=== PATIENT | male | born 1980 | race Caucasian/White ===

== ENCOUNTER 2021-02-06 12:56 | Inpatient (IN) ==
[2021-02-06] MEDS ORDERED: DEXTROSE 50% 25 GM/50 ML VIAL IV PRN (12:59)
[2021-02-06] MEDS ORDERED: GLUCAGON 1 MG VIAL IM PRN (12:59)
[2021-02-06] MEDS ORDERED: CLORAZEPATE 3.75 MG TABLET PO PRN (13:02)
[2021-02-06] MEDS ORDERED: MORPHINE 4 MG/1 ML VIAL IV PRN (13:21)
[2021-02-06] MEDS ORDERED: NITROGLYCERIN SL 0.4 MG TABLET SL PRN (13:21)
[2021-02-06 13:39] VITALS: BP 129/77
[2021-02-06 13:39] LABS: ABG Base Excess -0.4 MMOL/L (-2.5-2.5); ABG HCO3 24.1 MMOL/L (20-26); ABG Oxygen Saturation 97.7 % (95-100); ABG PCO2 37.2 MM HG (35-48); ABG PH 7.413 (7.35-7.45); ABG PO2 89.1 MM HG (80-95); ABG TCO2 19.7 MMOL/L (23-27)
[2021-02-06] MEDS ORDERED: SODIUM CHLORIDE 0.9% 1,000 ML IV SCH (14:00)
[2021-02-06 14:11] LABS: Basophils # 0.1 10*3/uL (0.0-0.2); Basophils % 0.6 % (0.0-0.8); Eosinophils # 0.2 10*3/uL (0.0-0.87); Eosinophils % 1.3 % (0.00-10.9); Hematocrit 46.4 VOL% (42.0-52.0); Hemoglobin 16.2 GM/DL (14.0-18.0); Immature Granulocytes % 0.9 %; Immature Granulocytes Absolute 0.13 #; Lymphocytes # 3.7 10*3/uL (1.4-4.0); Lymphocytes % 26.1 % (21.2-54.2); Mean Corpuscular HGB Conc 34.9 GM/DL (32-36); Mean Corpuscular Volume 86.9 FL (87-102); Mean Platelet Volume 9.3 FL (9.6-12.0); Monocytes % 5.3 % (1.7-12.7); Neutrophils % 65.8 % (38.7-73.9); Platelet Count 303 T/CUMM (130-400); Red Blood Count 5.34 MC/CUMM (3.8-5.5); Red Cell Distribution Width 12.8 % (9.3-17.3); White Blood Count 14.1 T/CUMM (4-12)
[2021-02-06 14:40] LABS: Albumin 3.5 G/DL (3.4-5.0); Bilirubin,Total 0.5 MG/DL (0.2-1.0); Calcium 8.7 MG/DL (8.5-10.1); Osmolality,Calculated 276.4 MOS/KG (273-304); Total Protein 7.2 G/DL (6.4-8.2); Troponin I 0.028 NG/ML (0.00-0.045)
[2021-02-06] MEDS ORDERED: CHLORHEXIDINE 0.12% ORAL RINSE 60 ML BOTTLE SWISH/SPIT SCH (15:00)
[2021-02-06] MEDS ORDERED: CHLORHEXIDINE 4% SOLN 118 ML BOTTLE TOP SCH (15:00)
[2021-02-06] MEDS ORDERED: carvediloL 3.125 MG TABLET PO SCH (21:00)
[2021-02-07] MEDS ORDERED: CEFUROXIME INJ 1,500 MG in SODIUM CHLORIDE 0.9% 100 ML IV ONE (05:00)
[2021-02-07] MEDS ORDERED: FAMOTIDINE 20 MG TABLET PO ONE (05:00)
[2021-02-07] MEDS ORDERED: DIAZEPAM 5 MG TABLET PO ONE (05:00)
== END 2021-02-06 16:00 | disposition left against medical advice (07) | DRG 282 ==
LOC: N.5E 12:56

== ENCOUNTER 2021-03-25 09:00 | Inpatient (IN) ==
[2021-03-25] MEDS ORDERED: GLUCAGON 1 MG VIAL IM PRN ×2 (09:24→13:26)
[2021-03-25] MEDS ORDERED: DEXTROSE 50% 25 GM/50 ML VIAL IV PRN ×2 (09:24→13:26)
[2021-03-25 10:14] LABS: ABG Base Excess -3.2 MMOL/L (-2.5-2.5); ABG HCO3 21.8 MMOL/L (20-26); ABG Oxygen Saturation 98.1 % (95-100); ABG PCO2 31.1 MM HG (35-48); ABG PH 7.418 (7.35-7.45); ABG TCO2 16.7 MMOL/L (23-27)
[2021-03-25] MEDS ORDERED: NITROGLYCERIN SL 0.4 MG TABLET SL PRN (10:52)
[2021-03-25 11:02] LABS: Basophils # 0.1 10*3/uL (0.0-0.2); Basophils % 0.4 % (0.0-0.8); Eosinophils # 0.1 10*3/uL (0.0-0.87); Eosinophils % 1.2 % (0.00-10.9); Hematocrit 42.6 VOL% (42.0-52.0); Hemoglobin 15.5 GM/DL (14.0-18.0); Immature Granulocytes % 0.4 %; Immature Granulocytes Absolute 0.05 #; Lymphocytes # 3.6 10*3/uL (1.4-4.0); Lymphocytes % 31.1 % (21.2-54.2); Mean Corpuscular HGB Conc 36.4 GM/DL (32-36); Mean Corpuscular Volume 85.4 FL (87-102); Mean Platelet Volume 9.3 FL (9.6-12.0); Monocytes % 5.8 % (1.7-12.7); Neutrophils % 61.1 % (38.7-73.9); Platelet Count 239 T/CUMM (130-400); Red Blood Count 4.99 MC/CUMM (3.8-5.5); Red Cell Distribution Width 12.5 % (9.3-17.3); White Blood Count 11.6 T/CUMM (4-12)
[2021-03-25 11:29] LABS: Albumin 3.4 G/DL (3.4-5.0); Bilirubin,Total 0.5 MG/DL (0.2-1.0); Calcium 8.5 MG/DL (8.5-10.1); Osmolality,Calculated 277.5 MOS/KG (273-304); Total Protein 7.2 G/DL (6.4-8.2)
[2021-03-25] MEDS: CHLORHEXIDINE 0.12% ORAL RINSE 60 ML BOTTLE SWISH/SPIT SCH ×2 (11:55→21:46)
[2021-03-25] MEDS ORDERED: PANTOPRAZOLE 40 MG TABLET PO ONE (13:37)
[2021-03-25] MEDS ORDERED: DIAZEPAM 5 MG TABLET PO ONE (13:37)
[2021-03-25] MEDS: SODIUM CHLORIDE 0.9% 1,000 ML IV SCH (13:45)
[2021-03-25] MEDS: CHLORHEXIDINE 4% SOLN 118 ML BOTTLE TOP SCH ×2 (14:38→21:46)
[2021-03-25] MEDS ORDERED: CLORAZEPATE 3.75 MG TABLET PO PRN (14:41)
[2021-03-25] MEDS ORDERED: NICOTINE 21 MG/24 HR PATCH TRANSDERM PRN (14:41)
[2021-03-25] MEDS: INSULIN REGULAR 100 UNIT/ML SUBCUT SCH ×2 (16:08→21:46)
[2021-03-25] MEDS: carvediloL 3.125 MG TABLET PO SCH (21:46)
[2021-03-26] MEDS ORDERED: PAPAVERINE 60 MG/2 ML VIAL ONE (04:25)
[2021-03-26] MEDS ORDERED: VANCOMYCIN 500 MG VIAL ONE (04:25)
[2021-03-26] MEDS ORDERED: VANCOMYCIN 1,000 MG VIAL ONE (04:25)
[2021-03-26] MEDS ORDERED: CEFUROXIME INJ 1,500 MG in SODIUM CHLORIDE 0.9% 100 ML IV ONE (05:00)
[2021-03-26] MEDS ORDERED: SUFentanil 50 MCG/ML AMP ONE (05:49)
[2021-03-26] MEDS ORDERED: MIDAZOLAM 10 MG/2 ML VIAL ONE (05:49)
[2021-03-26] MEDS ORDERED: SUFentanil 250 MCG/5 ML AMP ONE (05:49)
[2021-03-26] MEDS ORDERED: PANTOPRAZOLE 40 MG TABLET PO ONE (06:00)
[2021-03-26] MEDS ORDERED: DIAZEPAM 5 MG TABLET PO ONE (06:00)
[2021-03-26] MEDS ORDERED: VECURONIUM 10 MG VIAL IV ONE ×3 (06:02→06:17)
[2021-03-26] MEDS ORDERED: CALCIUM CHLORIDE 1,000 MG/10 ML VIAL IV ONE ×2 (06:02→11:34)
[2021-03-26] MEDS ORDERED: ETOMIDATE 40 MG/20 ML VIAL IV ONE (06:02)
[2021-03-26] MEDS ORDERED: AMINOCAPROIC ACID 5,000 MG/20 ML VIAL ONE (06:02)
[2021-03-26] MEDS ORDERED: LIDOCAINE 2% 5 ML VIAL ONE ×2 (06:02→11:53)
[2021-03-26 07:38] LABS: ABG Base Excess -1.2 MMOL/L (-2.5-2.5); ABG HCO3 23.4 MMOL/L (20-26); ABG Oxygen Saturation 98.9 % (95-100); ABG PCO2 39.2 MM HG (35-48); ABG PH 7.394 (7.35-7.45); ABG PO2 363.8 MM HG (80-95); ABG TCO2 24.6 MMOL/L (23-27); Glucose Heart Surgery 273 MG/DL (74-106); Ionized Calcium Arterial 1.09 MMOL/L (1.21-1.46); PCO2 Patient Temp Arterial 39.2 MMHG; PH Patient Temp Arterial 7.394; PO2 Patient Temp Arterial 363.8 MM HG; Patient Temperature 37 CELCIUS; Sodium Heart/CVR 132 MMOL/L (135-145)
[2021-03-26] MEDS ORDERED: POTASSIUM CHLORIDE RIDER 20 MEQ/100 ML PREMIX IV ONE (07:43)
[2021-03-26] MEDS ORDERED: SODIUM BICARBONATE 50 MEQ/50 ML VIAL IV ONE ×2 (07:43→11:55)
[2021-03-26] MEDS ORDERED: NITROPRUSSIDE 50 MG/2 ML VIAL ONE (07:43)
[2021-03-26] MEDS ORDERED: PHENYLEPHRINE DRIP 40 MG/250 ML PREMIX IV ONE (07:44)
[2021-03-26] MEDS ORDERED: CALCIUM CHLORIDE 1,000 MG/10 ML SYRINGE IV ONE (07:44)
[2021-03-26] MEDS ORDERED: ALBUMIN 5% 25.0 GM/500 ML VIAL IV ONE (07:44)
[2021-03-26 07:56] LABS: Bilirubin,Urine Negative (Negative); Blood, Urine Negative (Negative); Glucose,Urine (UA) >=500 mg/dL (Negative); Ketones,Urine Negative (Negative); Nitrite,Urine Negative (Negative); Protein,Urine Negative; RBC,Urine 1 /HPF (0-4); Squamous Epithelial Cell,Urine Occasional /HPF (0-10); Urine Appearance CLEAR (Clear); Urine Color Yellow (Yellow); Urine Specific Gravity 1.017 (1.001-1.035); Urine Urobilinogen < 2.0 EU/DL (0.2-1.0)
[2021-03-26 09:37] LABS: Hemoglobin Heart Surgery 10.3 G/DL (14.0-18.0); PCO2 Patient Temp Venous 37.5 MM HG; PH Patient Temp Venous 7.416; PO2 Patient Temp Venous 35.2 MM HG; VBG HCO3 24.3 MEQ/L (24-28); VBG Oxygen Saturation 78.7 %; VBG PCO2 42.8 MMHG (41-51); VBG PH 7.372; VBG PO2 43.5 MMHG (17-40); VBG Total CO2 25.6 MMOL/L
[2021-03-26 09:38] LABS: Potassium Heart/CVR 6.6 MMOL/L (3.5-5.1)
[2021-03-26 10:15] LABS: Hemoglobin Heart Surgery 12.3 G/DL (14.0-18.0); PCO2 Patient Temp Venous 39.3 MM HG; PH Patient Temp Venous 7.376; PO2 Patient Temp Venous 43.4 MM HG; VBG Base Excess -2.4 MEQ/L (0-4); VBG HCO3 22.5 MEQ/L (24-28); VBG Oxygen Saturation 78.3 %; VBG PCO2 39.3 MMHG (41-51); VBG PH 7.376; VBG PO2 43.4 MMHG (17-40); VBG Total CO2 23.7 MMOL/L
[2021-03-26 10:16] LABS: Potassium Heart/CVR 6.1 MMOL/L (3.5-5.1)
[2021-03-26] MEDS ORDERED: PHENYLEPHRINE DRIP 20 MG/250 ML PREMIX IV ONE (10:52)
[2021-03-26] MEDS ORDERED: HEPARIN/NACL 0.9% 2 UNITS/ML 1,000 UNIT/500 ML BAG IV ONE (10:52)
[2021-03-26] MEDS ORDERED: SODIUM CHLORIDE 0.9% 250 ML IV ONE (10:52)
[2021-03-26] MEDS ORDERED: SODIUM CHLORIDE 0.9% 1,000 ML IV ONE ×2 (10:52→12:08)
[2021-03-26] MEDS ORDERED: LACTATED RINGERS 1,000 ML IV ONE (10:52)
[2021-03-26] MEDS ORDERED: NITROGLYCERIN DRIP 50 MG/250 ML BOTTLE IV ONE (10:52)
[2021-03-26] MEDS ORDERED: SEVOFLURANE 1 UNIT/15 MINUTE INH ONE ×2 (10:53→11:44)
[2021-03-26 10:54] LABS: Hematocrit Heart Surgery 40.3 PERCENT (42-52); Hemoglobin Heart Surgery 13.1 G/DL (14.0-18.0); PCO2 Patient Temp Venous 40.1 MM HG; PH Patient Temp Venous 7.366; PO2 Patient Temp Venous 35.2 MM HG; Potassium Heart/CVR 5.5 MMOL/L (3.5-5.1); VBG Base Excess -2.2 MEQ/L (0-4); VBG Oxygen Saturation 67.9 %; VBG PCO2 40.1 MMHG (41-51); VBG PH 7.366; VBG PO2 35.2 MMHG (17-40); VBG Total CO2 20.3 MMOL/L
[2021-03-26] MEDS ORDERED: NEOMYCIN/POLYMYXIN IRRIG SOLN 1 ML AMP BLADDERIRR ONE (11:03)
[2021-03-26] MEDS ORDERED: ALBUTEROL INHALER 18 GM INH ONE (11:17)
[2021-03-26 11:45] LABS: ABG Base Excess -6.1 MMOL/L (-2.5-2.5); ABG HCO3 19.5 MMOL/L (20-26); ABG Oxygen Saturation 98.5 % (95-100); ABG PCO2 49.4 MM HG (35-48); ABG PH 7.249 (7.35-7.45); ABG TCO2 19.4 MMOL/L (23-27); Glucose Heart Surgery 407 MG/DL (74-106); Hematocrit Heart Surgery 39.4 PERCENT (42-52); Hemoglobin Heart Surgery 12.8 G/DL (14.0-18.0); Ionized Calcium Arterial 1.41 MMOL/L (1.21-1.46); PCO2 Patient Temp Arterial 49.4 MMHG; PH Patient Temp Arterial 7.249; Patient Temperature 37 CELCIUS; Potassium Heart/CVR 3.6 MMOL/L (3.5-5.1); Sodium Heart/CVR 132 MMOL/L (135-145)
[2021-03-26] MEDS ORDERED: MAGNESIUM SULFATE 5 GM/10 ML VIAL IV ONE (11:53)
[2021-03-26] MEDS ORDERED: ALBUMIN 25% 25 GM/100 ML VIAL IV ONE (11:53)
[2021-03-26] MEDS ORDERED: methylPREDNISolone SOD SUC 1,000 MG/8 ML VIAL ONE (11:54)
[2021-03-26] MEDS ORDERED: PROTAMINE SULFATE 250 MG/25 ML VIAL IV ONE (11:54)
[2021-03-26] MEDS ORDERED: MANNITOL 100 GM/500 ML BAG IV ONE (11:54)
[2021-03-26] MEDS ORDERED: HEPARIN 10,000 UNIT/10 ML VIAL ONE (11:54)
[2021-03-26] MEDS ORDERED: FUROSEMIDE 20 MG/2 ML VIAL ONE (11:54)
[2021-03-26] MEDS ORDERED: DEXTROSE 5% KCL 20 MEQ 20 MEQ/1,000 ML BAG IV ONE (11:54)
[2021-03-26] MEDS ORDERED: PROTAMINE SULFATE 50 MG/5 ML VIAL IV ONE (11:54)
[2021-03-26] MEDS: PHENYLEPHRINE DRIP 40 MG/250 ML PREMIX IV PRN ×2 (12:35→20:44)
[2021-03-26] MEDS ORDERED: MAGNESIUM SULF RIDER 4 GM/100 ML PREMIX IV PRN (12:56)
[2021-03-26] MEDS ORDERED: CHLORHEXIDINE 4% SOLN 118 ML BOTTLE TOP PRN (12:56)
[2021-03-26] MEDS ORDERED: INSULIN REGULAR 100 UNIT/ML IV ONE ×2 (12:56→16:07)
[2021-03-26] MEDS ORDERED: MORPHINE 10 MG/1 ML VIAL IV PRN (12:56)
[2021-03-26] MEDS ORDERED: MAGNESIUM SULF RIDER 2 GM/50 ML PREMIX IV PRN (12:56)
[2021-03-26] MEDS ORDERED: LACTATED RINGERS 250 ML IV PRN (12:56)
[2021-03-26] MEDS ORDERED: MIDAZOLAM 2 MG/2 ML VIAL IV PRN (12:56)
[2021-03-26] MEDS ORDERED: INSULIN REGULAR 100 UNIT/ML IV PRN (12:56)
[2021-03-26] MEDS ORDERED: SODIUM CHLORIDE 0.45% 1,000 ML IV SCH (12:56)
[2021-03-26] MEDS ORDERED: NITROPRUSSIDE 100 MG in DEXTROSE 5% 250 ML IV PRN (12:56)
[2021-03-26] MEDS ORDERED: ONDANSETRON 4 MG/2 ML VIAL IV PRN (12:56)
[2021-03-26] MEDS ORDERED: POTASSIUM CHLORIDE RIDER 10 MEQ/100 ML PREMIX IV PRN (12:56)
[2021-03-26] MEDS ORDERED: VECURONIUM 10 MG VIAL IV PRN ×2 (12:56)
[2021-03-26] MEDS ORDERED: ACETAMINOPHEN 650 MG SUPP RECTAL PRN (12:56)
[2021-03-26] MEDS ORDERED: CALCIUM CHLORIDE 1,000 MG/10 ML SYRINGE IV PRN (12:56)
[2021-03-26] MEDS ORDERED: DEXTROSE 50% 25 GM/50 ML VIAL IV PRN ×2 (12:56)
[2021-03-26] MEDS ORDERED: MIDAZOLAM 10 MG/2 ML VIAL IV PRN (12:56)
[2021-03-26 13:04] LABS: ABG Base Excess -4.7 MMOL/L (-2.5-2.5); ABG HCO3 20.6 MMOL/L (20-26); ABG Oxygen Saturation 99.1 % (95-100); ABG PCO2 45.7 MM HG (35-48); ABG PH 7.292 (7.35-7.45); ABG TCO2 19.5 MMOL/L (23-27); Glucose Heart Surgery 357 MG/DL (74-106); Hematocrit Heart Surgery 41.3 PERCENT (42-52); Hemoglobin Heart Surgery 13.5 G/DL (14.0-18.0); Potassium Heart/CVR 3.3 MMOL/L (3.5-5.1)
[2021-03-26 13:05] LABS: Basophils # 0.1 10*3/uL (0.0-0.2); Basophils % 0.4 % (0.0-0.8); Eosinophils # 0.1 10*3/uL (0.0-0.87); Eosinophils % 0.3 % (0.00-10.9); Hematocrit 37.4 VOL% (42.0-52.0); Hemoglobin 13.4 GM/DL (14.0-18.0); Immature Granulocytes % 1.3 %; Lymphocytes # 3.3 10*3/uL (1.4-4.0); Lymphocytes % 14.2 % (21.2-54.2); Mean Corpuscular HGB Conc 35.8 GM/DL (32-36); Mean Corpuscular Volume 87.4 FL (87-102); Mean Platelet Volume 9.4 FL (9.6-12.0); Monocytes % 5.4 % (1.7-12.7); Neutrophils % 78.4 % (38.7-73.9); Platelet Count 231 T/CUMM (130-400); Red Blood Count 4.28 MC/CUMM (3.8-5.5); Red Cell Distribution Width 12.6 % (9.3-17.3)
[2021-03-26 13:06] LABS: White Blood Count 23.5 T/CUMM (4-12)
[2021-03-26 13:17] LABS: INR 1.1; Partial Thromboplastin Time 26.2 SECS (23.9-33.8)
[2021-03-26 13:19] LABS: Albumin 2.8 G/DL (3.4-5.0); Bilirubin,Total 1.1 MG/DL (0.2-1.0); Calcium 8.2 MG/DL (8.5-10.1); Osmolality,Calculated 288.5 MOS/KG (273-304); Potassium 3.4 MMOL/L (3.5-5.1); Total Protein 5.2 G/DL (6.4-8.2)
[2021-03-26 13:23] LABS: CKMB % 6.1 %
[2021-03-26 13:25] LABS: High Sensitive Troponin I* 2715.4 ng/L (0-78)
[2021-03-26] MEDS: POTASSIUM CHLORIDE RIDER 20 MEQ/100 ML PREMIX IV PRN ×4 (13:30→23:54)
[2021-03-26 13:48] LABS: Lymphocytes 12 % (20-55); Platelet Estimate Adequate; Segmented Neutrophils 87 % (50-85); Total Cells Counted 100
[2021-03-26] MEDS: ALBUMIN 5% 12.5 GM/250 ML VIAL IV PRN ×2 (14:24→20:38)
[2021-03-26] MEDS: INSULIN REGULAR 100 UNIT/ML SUBCUT SCH ×2 (14:35→14:36)
[2021-03-26] MEDS: CHLORHEXIDINE 4% SOLN 118 ML BOTTLE TOP SCH (14:36)
[2021-03-26] MEDS: CHLORHEXIDINE 0.12% ORAL RINSE 60 ML BOTTLE SWISH/SPIT SCH ×2 (14:36→20:48)
[2021-03-26] MEDS: carvediloL 3.125 MG TABLET PO SCH (14:36)
[2021-03-26] MEDS: SODIUM CHLORIDE 0.9% 1,000 ML IV SCH (14:37)
[2021-03-26 14:42] LABS: ABG Base Excess -3.1 MMOL/L (-2.5-2.5); ABG HCO3 21.8 MMOL/L (20-26); ABG Oxygen Saturation 97.7 % (95-100); ABG PH 7.322 (7.35-7.45); Glucose Heart Surgery 379 MG/DL (74-106); Hematocrit Heart Surgery 46.5 PERCENT (42-52); Hemoglobin Heart Surgery 15.2 G/DL (14.0-18.0); Potassium Heart/CVR 4.6 MMOL/L (3.5-5.1)
[2021-03-26] MEDS: INSULIN REGULAR DRIP 100 ML IV SCH ×2 (15:05→20:42)
[2021-03-26] MEDS ORDERED: ACETAMINOPHEN 325 MG/10.15 ML UDCUP PO PRN (15:51)
[2021-03-26] MEDS ORDERED: ACETAMINOPHEN 325 MG/10.15 ML UDCUP ONE (15:53)
[2021-03-26] MEDS: KETOROLAC 30 MG/1 ML VIAL IV SCH ×2 (17:32→23:41)
[2021-03-26] MEDS ORDERED: FUROSEMIDE 40 MG/4 ML VIAL IV ONE (20:06)
[2021-03-26 20:07] LABS: ABG Base Excess -4.5 MMOL/L (-2.5-2.5); ABG HCO3 20.9 MMOL/L (20-26); ABG Oxygen Saturation 96.9 % (95-100); ABG PCO2 39.8 MM HG (35-48); ABG PH 7.339 (7.35-7.45); ABG PO2 97.5 MM HG (80-95); ABG TCO2 22.2 MMOL/L (23-27); Glucose Heart Surgery 198 MG/DL (74-106); Hemoglobin Heart Surgery 14.6 G/DL (14.0-18.0); Potassium Heart/CVR 3.6 MMOL/L (3.5-5.1)
[2021-03-26] MEDS: CEFUROXIME INJ 1,500 MG in SODIUM CHLORIDE 0.9% 100 ML IV SCH (20:35)
[2021-03-26 20:56] LABS: High Sensitive Troponin I* 29268.6 ng/L (0-78)
[2021-03-26] MEDS: MORPHINE 4 MG/1 ML VIAL IV PRN (23:48)
[2021-03-26 23:49] LABS: ABG HCO3 22.7 MMOL/L (20-26); ABG Oxygen Saturation 96.6 % (95-100); ABG PCO2 39.3 MM HG (35-48); ABG PH 7.375 (7.35-7.45); ABG PO2 84.6 MM HG (80-95); Glucose Heart Surgery 161 MG/DL (74-106); Hematocrit Heart Surgery 41.1 PERCENT (42-52); Hemoglobin Heart Surgery 13.4 G/DL (14.0-18.0); Potassium Heart/CVR 3.3 MMOL/L (3.5-5.1)
[2021-03-27] MEDS: POTASSIUM CHLORIDE RIDER 20 MEQ/100 ML PREMIX IV PRN (00:30)
[2021-03-27] MEDS: INSULIN REGULAR DRIP 100 ML IV SCH (01:51)
[2021-03-27 04:03] LABS: ABG Base Excess -2.6 MMOL/L (-2.5-2.5); ABG HCO3 22.2 MMOL/L (20-26); ABG Oxygen Saturation 94.9 % (95-100); ABG PH 7.375 (7.35-7.45); ABG PO2 71.7 MM HG (80-95); ABG TCO2 19.4 MMOL/L (23-27); Glucose Heart Surgery 116 MG/DL (74-106); Hematocrit Heart Surgery 40.9 PERCENT (42-52); Hemoglobin Heart Surgery 13.3 G/DL (14.0-18.0); Potassium Heart/CVR 3.8 MMOL/L (3.5-5.1)
[2021-03-27 04:11] LABS: Basophils # 0.1 10*3/uL (0.0-0.2); Basophils % 0.2 % (0.0-0.8); Eosinophils % 0.1 % (0.00-10.9); Hematocrit 37.2 VOL% (42.0-52.0); Hemoglobin 12.9 GM/DL (14.0-18.0); Lymphocytes # 2.4 10*3/uL (1.4-4.0); Mean Corpuscular HGB Conc 34.7 GM/DL (32-36); Mean Corpuscular Volume 87.1 FL (87-102); Mean Platelet Volume 9.2 FL (9.6-12.0); Monocytes % 5.5 % (1.7-12.7); Neutrophils % 85.2 % (38.7-73.9); Platelet Count 253 T/CUMM (130-400); Red Blood Count 4.27 MC/CUMM (3.8-5.5); Red Cell Distribution Width 12.9 % (9.3-17.3); White Blood Count 30.6 T/CUMM (4-12)
[2021-03-27 04:39] LABS: Band Neutrophils 2 % (0-10); Lymphocytes 9 % (20-55); Segmented Neutrophils 88 % (50-85); Total Cells Counted 100
[2021-03-27 04:40] LABS: Albumin 3.3 G/DL (3.4-5.0); Bilirubin,Direct 0.2 MG/DL (0.0-0.20); Bilirubin,Total 0.6 MG/DL (0.2-1.0); Calcium 7.8 MG/DL (8.5-10.1); Hypochromasia Slight; Microcytosis 1+; Osmolality,Calculated 279.3 MOS/KG (273-304); Platelet Estimate Normal; Potassium 3.8 MMOL/L (3.5-5.1); Total Protein 5.6 G/DL (6.4-8.2)
[2021-03-27 04:52] LABS: CKMB % 7.7 %
[2021-03-27 04:54] LABS: High Sensitive Troponin I* 39035.6 ng/L (0-78)
[2021-03-27] MEDS: KETOROLAC 30 MG/1 ML VIAL IV SCH ×4 (05:51→21:39)
[2021-03-27] MEDS: MORPHINE 4 MG/1 ML VIAL IV PRN ×2 (05:52→07:48)
[2021-03-27] MEDS ORDERED: FUROSEMIDE 40 MG/4 ML VIAL IV ONE (07:03)
[2021-03-27] MEDS ORDERED: FUROSEMIDE 40 MG/4 ML VIAL ONE (07:05)
[2021-03-27] MEDS: CEFUROXIME INJ 1,500 MG in SODIUM CHLORIDE 0.9% 100 ML IV SCH ×2 (07:16→21:06)
[2021-03-27] MEDS: ASPIRIN EC 325 MG TABLET PO SCH (08:12)
[2021-03-27] MEDS: CHLORHEXIDINE 0.12% ORAL RINSE 60 ML BOTTLE SWISH/SPIT SCH ×2 (08:12→21:05)
[2021-03-27] MEDS ORDERED: INSULIN REGULAR 100 UNIT/ML SUBCUT SCH ×2 (08:30→10:00)
[2021-03-27] MEDS: oxyCODONE/ACETAMINOPHEN 5-325 MG TABLET PO PRN ×2 (08:37→19:47)
[2021-03-27] MEDS ORDERED: ZALEPLON 5 MG CAPSULE PO PRN (10:12)
[2021-03-27] MEDS ORDERED: MAGNESIUM HYDROXIDE SUSP 30 ML UDCUP PO PRN (10:12)
[2021-03-27] MEDS ORDERED: ONDANSETRON 4 MG/2 ML VIAL IV PRN (10:12)
[2021-03-27] MEDS ORDERED: DEXTROSE 50% 25 GM/50 ML VIAL IV PRN ×2 (10:12)
[2021-03-27] MEDS ORDERED: POTASSIUM CHLORIDE 20 MEQ TABLET PO PRN (10:12)
[2021-03-27] MEDS ORDERED: GLUCAGON 1 MG VIAL IM PRN ×2 (10:12)
[2021-03-27] MEDS ORDERED: MAGNESIUM SULF RIDER 2 GM/50 ML PREMIX IV PRN (10:12)
[2021-03-27] MEDS ORDERED: ACETAMINOPHEN 325 MG TABLET PO PRN (10:12)
[2021-03-27] MEDS ORDERED: SODIUM CHLOR 0.45% KCL 20 MEQ 20 MEQ/1,000 ML BAG IV SCH (10:12)
[2021-03-27] MEDS ORDERED: MAGNESIUM SULF RIDER 4 GM/100 ML PREMIX IV PRN (10:12)
[2021-03-27] MEDS ORDERED: ALUMINUM/MAGNES/SIMETH MAX STR 30 ML UDCUP PO PRN (10:12)
[2021-03-27] MEDS: carvediloL 3.125 MG TABLET PO SCH ×2 (10:46→21:07)
[2021-03-27] MEDS ORDERED: INSULIN GLARGINE 100 UNIT/ML SUBCUT SCH (14:29)
[2021-03-27 14:44] LABS: CKMB % 6.6 %
[2021-03-27 14:46] LABS: High Sensitive Troponin I* 20376.8 ng/L (0-78)
[2021-03-27] MEDS: INSULIN REGULAR 100 UNIT/ML SUBCUT SCH ×2 (15:06→21:06)
[2021-03-27] MEDS: HYDROmorphone 2 MG/1 ML VIAL IV PRN (21:40)
[2021-03-28] MEDS: INSULIN REGULAR 100 UNIT/ML SUBCUT SCH ×6 (00:07→21:33)
[2021-03-28] MEDS: KETOROLAC 30 MG/1 ML VIAL IV SCH ×4 (02:32→22:34)
[2021-03-28 05:00] LABS: Basophils % 0.2 % (0.0-0.8); Eosinophils % 0.1 % (0.00-10.9); Hematocrit 32.2 VOL% (42.0-52.0); Hemoglobin 11.1 GM/DL (14.0-18.0); Immature Granulocytes % 0.8 %; Immature Granulocytes Absolute 0.13 #; Lymphocytes # 3.1 10*3/uL (1.4-4.0); Lymphocytes % 18.3 % (21.2-54.2); Mean Corpuscular HGB Conc 34.5 GM/DL (32-36); Mean Platelet Volume 9.4 FL (9.6-12.0); Monocytes % 7.5 % (1.7-12.7); Neutrophils % 73.1 % (38.7-73.9); Platelet Count 171 T/CUMM (130-400); Red Blood Count 3.62 MC/CUMM (3.8-5.5); Red Cell Distribution Width 12.9 % (9.3-17.3); White Blood Count 16.9 T/CUMM (4-12)
[2021-03-28 05:27] LABS: Bilirubin,Direct 0.16 MG/DL (0.0-0.20); Bilirubin,Total 0.5 MG/DL (0.2-1.0); Calcium 8.2 MG/DL (8.5-10.1); Osmolality,Calculated 281.1 MOS/KG (273-304); Potassium 3.9 MMOL/L (3.5-5.1); Total Protein 5.9 G/DL (6.4-8.2)
[2021-03-28 05:28] LABS: Albumin 2.9 G/DL (3.4-5.0); Bilirubin,Direct 0.17 MG/DL (0.0-0.20); Bilirubin,Indirect 0.4 MG/DL (0.0-1.0); Bilirubin,Total 0.6 MG/DL (0.2-1.0); CKMB % 4.5 %; High Sensitive Troponin I* 11668.3 ng/L (0-78); Total Protein 5.9 G/DL (6.4-8.2)
[2021-03-28] MEDS ORDERED: FUROSEMIDE 40 MG/4 ML VIAL IV ONE (06:00)
[2021-03-28] MEDS: HYDROmorphone 2 MG/1 ML VIAL IV PRN ×4 (08:28→20:04)
[2021-03-28] MEDS: FERROUS SULFATE 325 MG TABLET PO SCH (08:40)
[2021-03-28] MEDS: PANTOPRAZOLE 40 MG TABLET PO SCH (08:40)
[2021-03-28] MEDS: carvediloL 3.125 MG TABLET PO SCH ×2 (08:40→21:31)
[2021-03-28] MEDS: ASPIRIN EC 325 MG TABLET PO SCH (08:40)
[2021-03-28] MEDS: DOCUSATE SODIUM 100 MG CAPSULE PO SCH (08:41)
[2021-03-28] MEDS: metFORMIN 500 MG TABLET PO SCH ×2 (08:41→17:34)
[2021-03-28] MEDS: CHLORHEXIDINE 0.12% ORAL RINSE 60 ML BOTTLE SWISH/SPIT SCH ×2 (08:41→21:34)
[2021-03-28] MEDS ORDERED: oxyCODONE/ACETAMINOPHEN 5-325 MG TABLET PO PRN (12:17)
[2021-03-29] MEDS: INSULIN REGULAR 100 UNIT/ML SUBCUT SCH ×6 (00:35→21:57)
[2021-03-29] MEDS: HYDROmorphone 2 MG/1 ML VIAL IV PRN ×3 (00:36→19:48)
[2021-03-29] MEDS: KETOROLAC 30 MG/1 ML VIAL IV SCH ×4 (04:53→21:56)
[2021-03-29 05:20] LABS: Basophils % 0.1 % (0.0-0.8); Eosinophils # 0.1 10*3/uL (0.0-0.87); Eosinophils % 0.4 % (0.00-10.9); Hematocrit 33.2 VOL% (42.0-52.0); Hemoglobin 11.6 GM/DL (14.0-18.0); Immature Granulocytes % 0.8 %; Immature Granulocytes Absolute 0.14 #; Lymphocytes # 4.7 10*3/uL (1.4-4.0); Lymphocytes % 27.3 % (21.2-54.2); Mean Corpuscular HGB Conc 34.9 GM/DL (32-36); Mean Corpuscular Volume 88.8 FL (87-102); Mean Platelet Volume 9.8 FL (9.6-12.0); Monocytes % 8.3 % (1.7-12.7); Neutrophils % 63.1 % (38.7-73.9); Platelet Count 208 T/CUMM (130-400); Red Blood Count 3.74 MC/CUMM (3.8-5.5); Red Cell Distribution Width 12.8 % (9.3-17.3); White Blood Count 17.1 T/CUMM (4-12)
[2021-03-29 05:42] LABS: Albumin 2.9 G/DL (3.4-5.0); Bilirubin,Direct 0.19 MG/DL (0.0-0.20); Bilirubin,Total 0.8 MG/DL (0.2-1.0); Calcium 8.3 MG/DL (8.5-10.1); Osmolality,Calculated 270.4 MOS/KG (273-304); Potassium 3.5 MMOL/L (3.5-5.1); Total Protein 6.3 G/DL (6.4-8.2)
[2021-03-29 05:43] LABS: Alanine Aminotransferase 40 U/L (16-61); Albumin 2.9 G/DL (3.4-5.0); Aspartate Amino Transferase 22 U/L (0-37); Bilirubin,Indirect 0.7 MG/DL (0.0-1.0); Total Protein 6.2 G/DL (6.4-8.2)
[2021-03-29 05:45] LABS: Alkaline Phosphatase 65 U/L (45-117)
[2021-03-29] MEDS ORDERED: FUROSEMIDE 40 MG/4 ML VIAL IV ONE (06:00)
[2021-03-29] MEDS: carvediloL 3.125 MG TABLET PO SCH ×2 (09:04→21:56)
[2021-03-29] MEDS: metFORMIN 500 MG TABLET PO SCH ×2 (09:04→17:07)
[2021-03-29] MEDS: ASPIRIN EC 325 MG TABLET PO SCH (09:04)
[2021-03-29] MEDS: DOCUSATE SODIUM 100 MG CAPSULE PO SCH (09:04)
[2021-03-29] MEDS: FERROUS SULFATE 325 MG TABLET PO SCH (09:04)
[2021-03-29] MEDS: PANTOPRAZOLE 40 MG TABLET PO SCH (09:05)
[2021-03-29] MEDS: CHLORHEXIDINE 0.12% ORAL RINSE 60 ML BOTTLE SWISH/SPIT SCH ×2 (09:05→21:57)
[2021-03-30] MEDS: HYDROmorphone 2 MG/1 ML VIAL IV PRN ×2 (00:16→05:51)
[2021-03-30] MEDS: INSULIN REGULAR 100 UNIT/ML SUBCUT SCH ×3 (00:17→09:19)
[2021-03-30] MEDS: KETOROLAC 30 MG/1 ML VIAL IV SCH ×2 (04:56→09:20)
[2021-03-30 05:36] LABS: Basophils % 0.3 % (0.0-0.8); Eosinophils # 0.2 10*3/uL (0.0-0.87); Eosinophils % 1.3 % (0.00-10.9); Hematocrit 29.6 VOL% (42.0-52.0); Hemoglobin 10.3 GM/DL (14.0-18.0); Immature Granulocytes % 0.7 %; Immature Granulocytes Absolute 0.08 #; Lymphocytes # 3.1 10*3/uL (1.4-4.0); Lymphocytes % 25.5 % (21.2-54.2); Mean Corpuscular HGB Conc 34.8 GM/DL (32-36); Mean Corpuscular Volume 89.7 FL (87-102); Monocytes % 8.1 % (1.7-12.7); Neutrophils % 64.1 % (38.7-73.9); Platelet Count 195 T/CUMM (130-400); Red Cell Distribution Width 12.6 % (9.3-17.3); White Blood Count 12.3 T/CUMM (4-12)
[2021-03-30 05:47] LABS: Calcium 8.4 MG/DL (8.5-10.1); Osmolality,Calculated 278.1 MOS/KG (273-304); Potassium 3.9 MMOL/L (3.5-5.1)
[2021-03-30] MEDS ORDERED: GLIMEPIRIDE 4 MG TABLET PO SCH (08:00)
[2021-03-30 08:15] VITALS: BP 106/63
[2021-03-30] MEDS ORDERED: carvediloL 6.25 MG TABLET PO SCH (09:00)
[2021-03-30] MEDS ORDERED: ATORVASTATIN 80 MG TABLET PO SCH (09:00)
[2021-03-30] MEDS: metFORMIN 500 MG TABLET PO SCH (10:27)
[2021-03-30] MEDS: DOCUSATE SODIUM 100 MG CAPSULE PO SCH (10:36)
[2021-03-30] MEDS: FERROUS SULFATE 325 MG TABLET PO SCH (10:36)
[2021-03-30] MEDS: PANTOPRAZOLE 40 MG TABLET PO SCH (10:36)
[2021-03-30] MEDS: ASPIRIN EC 325 MG TABLET PO SCH (10:36)
[2021-03-30] MEDS: CHLORHEXIDINE 0.12% ORAL RINSE 60 ML BOTTLE SWISH/SPIT SCH (10:39)
== END 2021-03-30 12:22 | disposition home or self-care (01) | DRG 235 ==
LOC: N.CC 09:21 → N.CVR 03-26 12:07 → N.TELES 03-27 17:00